=== PATIENT | male | born 1950 | race Caucasian/White ===

== ENCOUNTER → 2022-06-20 10:03 | Outpatient (BNVA) | payer OTHER, MEDICAID, SELFPAY | PROVIDERS: Visit Provider Nurse Practitioner | DX: Z12.11 Encounter for screening for malignant neoplasm of colon (principal) | CPT/HCPCS: 99202 ==

== ENCOUNTER → 2023-01-01 09:05 | Outpatient (BNVA) | payer MEDICARE, SELFPAY | PROVIDERS: Visit Provider Nurse Practitioner Family | DX: C61 Malignant neoplasm of prostate (principal); R35.1 Nocturia; N52.9 Male erectile dysfunction, unspecified | CPT/HCPCS: 51798; 99202 ==

== ENCOUNTER 2023-01-17 09:59 | Outpatient (REF) | payer OTHER, SELFPAY ==
--- NOTE | ~2023-01-17 | US_ITS ---
EXAMINATION: US RETROPERITONEAL COMPLETE (RENAL) CLINICAL INFORMATION: Nocturia. COMPARISON: None TECHNIQUE: Real-time imaging of the kidneys and bladder. FINDINGS: RIGHT KIDNEY: 11.1 x 4.7 x 4.6 cm (SAG x AP x TRV). The kidney is normal in size, contour, and echogenicity. Renal cortical thickness is normal. No hydronephrosis. Nonobstructing 2 mm stone. Benign-appearing 7 mm cyst. LEFT KIDNEY: 11.0 x 6.3 x 4.8 cm (SAG x AP x TRV). The kidney is normal in size, contour, and echogenicity. Renal cortical thickness is normal. No renal calculi or hydronephrosis. Benign-appearing mid pole 9 mm cyst BLADDER: Well distended and normal. Bilateral ureteral jets are demonstrated. Prevoid bladder volume is 215.3 mL. Postvoid bladder volume is 77.8 mL. There is possible trabeculation of the posterior bladder wall. Prostate is not enlarged with an estimated volume of 10.4 mL. US/US retroperitoneal comp IMPRESSION: 1. Large postvoid residual of 77.8 mL. Possible trabeculation of the posterior bladder wall. Correlate with urinalysis. 2. Nonobstructing right renal nephrolithiasis. 3. Benign-appearing bilateral renal cysts. Followup imaging is not routinely recommended for benign appearing cysts.
== END 2023-01-17 10:00 | disposition home or self-care (01) ==
LOC: HO.US 09:59
PROVIDERS: Visit Provider Nurse Practitioner Family
DX: R35.1 Nocturia (principal); C61 Malignant neoplasm of prostate
CPT/HCPCS: 76770

== ENCOUNTER → 2023-02-18 11:35 | Outpatient (BNVA) | payer OTHER, SELFPAY | PROVIDERS: Visit Provider Nurse Practitioner Family | DX: N52.9 Male erectile dysfunction, unspecified (principal); C61 Malignant neoplasm of prostate; R35.1 Nocturia; N28.1 Cyst of kidney, acquired | CPT/HCPCS: 51798; 99212 ==